=== PATIENT | female | born 1985 | race Caucasian/White ===

== ENCOUNTER 2018-07-12 20:45 | Inpatient (IN) | payer MEDICAID ==
[~2018-07-12] VITALS: Ht 172.7 cm; Wt 81.0 kg
[2018-07-12 20:50] VITALS: Ht 172.7 cm; Wt 81.0 kg
[2018-07-12] MEDS ORDERED: NORCO1 TA2 PO (20:59)
[2018-07-12] MEDS ORDERED: NAPROXEN375 MG PO (20:59)
[2018-07-12 21:07] LABS: BASOPHIL % 0.5 % (0-2); PLATELET COUNT 249 x10^3mcL (130-400)
[2018-07-12 21:11] LABS: RED CELL DISTRIBUTION WIDTH 17.3 % (11.5-14.5)
[2018-07-12 21:22] LABS: CALCIUM 8.5 mg/dL (8.5-10.1); CHLORIDE SERUM 104 mmol/L (98-107); CREATININE SERUM 0.6 mg/dL (0.6-1.0); GFR1 > 60 mL/min; GLUCOSE SERUM 95 mg/dL (74-106); POTASSIUM SERUM 3.6 mmol/L (3.5-5.1); SODIUM SERUM 139 mmol/L (136-145)
[2018-07-12 21:27] LABS: ALKALINE PHOSPHATASE 97 U/L (46-116); ALT/SGPT 562 U/L (14-59); AST/SGOT 673 U/L (15-37); BILIRUBIN TOTAL 1.4 mg/dL (0.20-1.00); LIPASE 297 IU/L (73-393); TOTAL PROTEIN, SERUM 6.8 g/dL (6.4-8.2)
[2018-07-12 21:37] LABS: UA SPECIFIC GRAVITY >=1.030 (1.005-1.035); microscopic required? YES; urine erythrocyte 3+ (NEGATIVE)
[2018-07-13 01:11] LABS: T3 TOTAL 0.81 ng/mL
[2018-07-13 01:14] LABS: PHOSPHOROUS 2.9 mg/dL (2.5-4.9)
[2018-07-13 01:17] VITALS: BP 110/73
[2018-07-13 01:18] LABS: CHOLESTEROL/HDL RATIO 2.2
[2018-07-13 01:23] LABS: FREE T4 1.15 ng/dL (0.76-1.46); FREE THYROXINE INDEX 2.8 ug/dL (1.4-4.5); T4(THYROXINE) 7.9 ug/dL (4.7-13.3)
[2018-07-13 04:16] LABS: TOTAL IRON BINDING CAPACITY 443 ug/dL (250-450)
[2018-07-13 04:18] LABS: IRON 32 ug/dL (50-170)
[2018-07-13 04:31] LABS: RED BLOOD CELLS 4.68 M/mm3 (4.10-5.10)
[2018-07-13 05:19] VITALS: BP 103/63
[2018-07-13 09:02] VITALS: BP 119/81
[2018-07-13 16:27] VITALS: BP 104/61
[2018-07-13 20:00] VITALS: BP 102/66
[2018-07-14 05:33] VITALS: BP 104/60
[2018-07-14 06:57] LABS: BASOPHIL % 0.4 % (0-2); PLATELET COUNT 227 x10^3mcL (130-400)
[2018-07-14 06:59] LABS: BILIRUBIN DIRECT 0.56 mg/dL (0.0-0.2); BILIRUBIN TOTAL 1.23 mg/dL (0.20-1.00)
[2018-07-14 07:00] LABS: CALCIUM 7.7 mg/dL (8.5-10.1); CARBON DIOXIDE 26.1 mmol/L (21-32); CHLORIDE SERUM 101 mmol/L (98-107); CREATININE SERUM 0.6 mg/dL (0.6-1.0); GFR1 > 60 mL/min; GLUCOSE SERUM 111 mg/dL (74-106); MAGNESIUM 1.6 mg/dL (1.8-2.4); PHOSPHOROUS 2.5 mg/dL (2.5-4.9); POTASSIUM SERUM 3.2 mmol/L (3.5-5.1); SODIUM SERUM 136 mmol/L (136-145); rbc morphology (normal/abnorm) ABNORMAL (NORMAL)
[2018-07-14 09:26] VITALS: BP 113/71
[2018-07-14 17:32] VITALS: BP 122/69
[2018-07-14 20:58] VITALS: BP 115/74
[2018-07-15 05:08] VITALS: BP 107/66
[2018-07-15 06:46] LABS: CALCIUM 7.6 mg/dL (8.5-10.1); CARBON DIOXIDE 26.8 mmol/L (21-32); CHLORIDE SERUM 103 mmol/L (98-107); CREATININE SERUM 0.5 mg/dL (0.6-1.0); GFR1 > 60 mL/min; GLUCOSE SERUM 95 mg/dL (74-106); POTASSIUM SERUM 3.4 mmol/L (3.5-5.1); SODIUM SERUM 135 mmol/L (136-145)
[2018-07-15 06:54] LABS: ALBUMIN 2.7 g/dL (3.4-5.0); BILIRUBIN DIRECT 0.33 mg/dL (0.0-0.2); BILIRUBIN TOTAL 0.8 mg/dL (0.20-1.00); TOTAL PROTEIN, SERUM 5.8 g/dL (6.4-8.2)
[2018-07-15 07:48] LABS: BASOPHIL % 0.2 % (0-2); PLATELET COUNT 198 x10^3mcL (130-400)
[2018-07-15 07:49] LABS: RED CELL DISTRIBUTION WIDTH 17.8 % (11.5-14.5)
[2018-07-15 08:04] VITALS: BP 117/72
[2018-07-15 09:38] LABS: ovalocyte/elliptocyte 1+
[2018-07-15 10:32] LABS: rbc morphology (normal/abnorm) ABNORMAL (NORMAL)
[2018-07-15] MEDS ORDERED: PER5 PO (10:54)
[2018-07-15 16:47] VITALS: BP 118/65
[2018-07-15 17:10] VITALS: BP 123/78
== END 2018-07-15 19:35 | disposition home or self-care (01) | DRG 263 ==
LOC: ED 20:45 → MU 07-13 00:12
PROVIDERS: Emergency Medicine; Family Medicine; Internal Medicine; Surgery
PROC: BF131ZZ Fluoroscopy of Gallbladder and Bile Ducts using Low Osmolar Contrast (ICD-10-PCS; 2018-07-13)
PROC: 0FT44ZZ Resection of Gallbladder, Percutaneous Endoscopic Approach (ICD-10-PCS; principal; 2018-07-13 09:45)
DX: K80.70 Calculus of gallbladder and bile duct without cholecystitis without obstruction (principal); N17.0 Acute kidney failure with tubular necrosis; E83.42 Hypomagnesemia; D50.9 Iron deficiency anemia, unspecified; E87.6 Hypokalemia; F12.10 Cannabis abuse, uncomplicated; R74.0 Nonspecific elevation of levels of transaminase and lactic acid dehydrogenase [LDH]; J98.11 Atelectasis; R80.9 Proteinuria, unspecified; Z68.26 Body mass index [BMI] 26.0-26.9, adult
CPT/HCPCS: 83880; 84439; 94150; C1758; J0330; J0690; J1170; J1885; J2175; J2250; J2270; J2405; J2543; J2704; J3010; J3490; J7030; J7120; Q0092; Q9967

== ENCOUNTER 2020-09-07 15:16 | Emergency (ER) | payer MEDICAID ==
[~2020-09-07] VITALS: Ht 170.2 cm; Wt 73.9 kg
[~2020-09-07 15:16] MED LIST: NAPROXEN375 MG PO; NORCO1 TA2 PO; PER5 PO
[2020-09-07 15:24] VITALS: Ht 170.2 cm; Wt 73.9 kg
[2020-09-07 17:07] LABS: BASOPHIL % 0.1 % (0-2); PLATELET COUNT 243 x10^3mcL (130-400)
[2020-09-07 17:12] LABS: RED CELL DISTRIBUTION WIDTH 14.7 % (11.5-14.5)
[2020-09-07 17:27] LABS: CALCIUM 8.7 mg/dL (8.5-10.1); CARBON DIOXIDE 22.6 mmol/L (21-32); CHLORIDE SERUM 102 mmol/L (98-107); CREATININE SERUM 0.6 mg/dL (0.6-1.0); GFR1 > 60 mL/min; GLUCOSE SERUM 117 mg/dL (74-106); POTASSIUM SERUM 3.2 mmol/L (3.5-5.1); SODIUM SERUM 137 mmol/L (136-145)
[2020-09-07 17:31] LABS: ALKALINE PHOSPHATASE 49 U/L (46-116); ALT/SGPT 19 U/L (14-59); AMYLASE 41 U/L (25-115); AST/SGOT 15 U/L (15-37); BILIRUBIN TOTAL 0.46 mg/dL (0.20-1.00); LIPASE 187 IU/L (73-393); TOTAL PROTEIN, SERUM 6.6 g/dL (6.4-8.2)
[2020-09-07 17:33] LABS: ALBUMIN 3.3 g/dL (3.4-5.0)
[2020-09-07 18:25] VITALS: BP 95/56
== END 2020-09-07 18:25 | disposition home or self-care (01) ==
LOC: ED 15:16
PROVIDERS: Emergency Medicine
DX: K21.9 Gastro-esophageal reflux disease without esophagitis (principal)
CPT/HCPCS: C9113; J2405; J3490; J7030